=== PATIENT | male | born 1980 | race Caucasian/White ===

== ENCOUNTER 2017-10-27 12:19 | Emergency (ER) | payer SELFPAY ==
[~2017-10-27] VITALS: Ht 190.5 cm; Wt 84.1 kg
[2017-10-27 12:24] VITALS: TEMP 98.7
[2017-10-27] MEDS ORDERED: FLEXERIL 1010 MG/TAB PO (12:52)
[2017-10-27 12:53] VITALS: BP 128/57; PULSE 91
== END 2017-10-27 12:58 | disposition home or self-care (01) ==
LOC: COL.ER 12:19
DX: M70.98 Unspecified soft tissue disorder related to use, overuse and pressure other (principal)